=== PATIENT | female | born 1950 | race Caucasian/White ===

== ENCOUNTER 2021-06-15 07:15 | Observation (INO) | payer MEDICARE ==
[2021-06-10 12:52] LABS: BASOPHILS % (AUTO) 0.3 % (0.0-5.0); EOSINOPHILS % (AUTO) 2.9 % (0.0-8.0); HEMATOCRIT 37.4 % (36-48); MEAN CORPUSCULAR HEMOGLOBIN 29.5 pg (27.0-33.0); MEAN CORPUSCULAR HGB CONC 31.8 g/dL (32.0-36.0); MEAN CORPUSCULAR VOLUME 92.6 fL (79-99); MONOCYTES % (AUTO) 9.7 % (3.0-13.0); NEUTROPHILS % (AUTO) 58.8 % (40.0-77.0); PLATELET COUNT (AUTO) 147 K/uL (130-400); RED BLOOD CELL COUNT(AUTO) 4.04 MIL/uL (4.00-5.50); RED CELL DISTRIBUTION WIDTH 15.2 % (11.0-15.5); WHITE BLOOD COUNT (AUTO) 6.8 K/uL (4.8-10.8)
[2021-06-10 13:01] LABS: CREATININE 1.1 mg/dL (0.5-1.5)
[2021-06-10 13:04] LABS: INR 0.93 (0.85-1.15); PROTHROMBIN TIME 10.1 SEC (9.6-11.6)
[2021-06-10 13:06] LABS: PARTIAL THROMBOPLASTIN TIME 25.4 SEC (26.3-35.5)
[2021-06-14 13:17] VITALS: BP 145/82
[~2021-06-15] VITALS: Ht 170.2 cm; Wt 105.4 kg
[2021-06-15] VITALS (24 sets, daily range): BP systolic 130–166; BP diastolic 58–101
[~2021-06-15 07:15] MED LIST: ACET-2743 PO; AEC81 PO; AMIO200T68 PO; CALC-1009 PO; CELE100 PO; FAMO20TA8 PO; HYDR-4153 PO; HYDR25TA PO; LEVO75CA5 PO; MELO-106 PO; NIFE-40 PO; OMEG-148 PO; POTA-79 PO; PREG100C PO; PSYL660P17 PO; TEMA30CA PO; TRAM50TA4 PO; VENL150T3 PO; [UNRECOGNIZED DRUG - CODE] PO
[2021-06-15] MEDS ORDERED: LACTATED RINGERS 1000ML 1,000 ML IV SCH (08:00)
[2021-06-15] MEDS: CEFAZOLIN SODIUM 1 GM VIAL IVP ONE ×2 (09:56→14:02)
[2021-06-15] MEDS ORDERED: LIDOCAINE PF 100MG/5ML (2%) SYRINGE 5ML ONE (12:42)
[2021-06-15] MEDS ORDERED: PROPOFOL 10 MG/ML 20ML VIAL IV ONE (12:42)
[2021-06-15] MEDS ORDERED: FENTANYL CITRATE PF 50 MCG/1 ML 2ML VIAL ONE ×3 (12:43→16:54)
[2021-06-15] MEDS ORDERED: ROCURONIUM 10MG/1ML SYR 10 MG/ML ML ONE (12:43)
[2021-06-15] MEDS ORDERED: MIDAZOLAM HCL 1 MG/ML 2ML VIAL ONE (12:43)
[2021-06-15] MEDS ORDERED: ONDANSETRON 4MG INJ ONE (12:45)
[2021-06-15] MEDS ORDERED: ROPIVACAINE 0.5% 5MG/ML 30ML IJ ONE (12:50)
[2021-06-15] MEDS ORDERED: DEXAMETHASONE SOD PHOSPHATE 10MG/ML 1ML VIAL ONE (12:51)
[2021-06-15] MEDS ORDERED: TRANEXAMIC ACID 1000MG/10ML ONE ×2 (13:08→14:17)
[2021-06-15] MEDS ORDERED: EPHEDRINE SULFATE 50 MG/ML AMPULE ONE (13:58)
[2021-06-15] MEDS ORDERED: LIDOCAINE HCL-MPF 1% 2ML VIAL IV PRN (14:00)
[2021-06-15] MEDS: ACETAMINOPHEN 500 MG TABLET PO SCH ×2 (14:00→21:29)
[2021-06-15] MEDS ORDERED: KCL 20 MEQ ERTAB PO PRN (14:00)
[2021-06-15] MEDS ORDERED: ONDANSETRON 4MG INJ IVP PRN (14:00)
[2021-06-15] MEDS: 0.9%NACL 1000ML 1,000 ML IV SCH (14:00)
[2021-06-15] MEDS ORDERED: POTASSIUM CHLORIDE 10% ELIXIR 20 MEQ/15 ML UDCUP PO PRN (14:00)
[2021-06-15] MEDS ORDERED: MORPHINE 4 MG SYG IVP PRN (14:00)
[2021-06-15] MEDS ORDERED: HYDROCODONE/ACETAMINOPHEN 5/325 MG TAB PO PRN (14:00)
[2021-06-15] MEDS ORDERED: POTASSIUM CHLORIDE 20MEQ/100ML 100 ML IV PRN (14:00)
[2021-06-15] MEDS ORDERED: BUPIVACAINE/PF 0.25% 30ML VIAL IJ ONE (15:11)
[2021-06-15] MEDS ORDERED: TRANEXAMIC ACID 1000MG/10ML IV ONE (15:22)
[2021-06-15] MEDS ORDERED: GLYCOPYRROLATE 1 MG/5 ML SYRINGE ONE ×2 (15:30→16:55)
[2021-06-15] MEDS ORDERED: NEOSTIGMINE 5MG/5ML SYR IV ONE (15:31)
[2021-06-15] MEDS ORDERED: KETOROLAC 30MG VIAL (30MG/ML) ONE (16:17)
[2021-06-15] MEDS ORDERED: MEPERIDINE-PF 25 MG/ML SYG ONE ×2 (16:18→16:25)
[2021-06-15] MEDS: HYDROCODONE/ACETAMINOPHEN 10/325 MG TAB PO PRN (18:40)
[2021-06-15] MEDS: TRAMADOL HCL 50 MG TABLET PO SCH ×2 (18:59→23:38)
[2021-06-15] MEDS: FAMOTIDINE 20MG TAB PO SCH (21:03)
[2021-06-15] MEDS: ASPIRIN 81 MG EC TAB PO SCH (21:03)
[2021-06-15] MEDS: PREGABALIN 100 MG CAPSULE PO SCH (21:04)
[2021-06-15] MEDS: HYDRALAZINE 25MG TABLET PO SCH (21:04)
[2021-06-15] MEDS: KCL 20 MEQ ERTAB PO SCH (21:04)
[2021-06-15] MEDS: MEPERIDINE-PF 25 MG/ML SYG IM PRN (21:20)
[2021-06-15] MEDS: CEFAZOLIN SODIUM 1 GM VIAL IVP SCH (21:20)
[2021-06-15] MEDS: CALDOLOR 800MG+NS 250ML 250 ML IV SCH (21:29)
[2021-06-15] MEDS: TEMAZEPAM 30 MG CAP PO SCH (23:38)
[2021-06-16] MEDS: BUTALB/ACETAMINOPHEN/CAFFEINE 1 EACH TABLET PO PRN ×2 (01:36→13:02)
[2021-06-16] MEDS: CALDOLOR 800MG+NS 250ML 250 ML IV SCH (02:13)
[2021-06-16] MEDS: CEFAZOLIN SODIUM 1 GM VIAL IVP SCH (02:13)
[2021-06-16] MEDS: MEPERIDINE-PF 25 MG/ML SYG IM PRN ×2 (04:32→14:12)
[2021-06-16 04:33] LABS: MEAN CORPUSCULAR HEMOGLOBIN 30.4 pg (27.0-33.0); MEAN CORPUSCULAR HGB CONC 33.7 g/dL (32.0-36.0); MEAN CORPUSCULAR VOLUME 90.4 fL (79-99); RED BLOOD CELL COUNT(AUTO) 3.32 MIL/uL (4.00-5.50); RED CELL DISTRIBUTION WIDTH 15.2 % (11.0-15.5); WHITE BLOOD COUNT (AUTO) 9.6 K/uL (4.8-10.8)
[2021-06-16 04:38] VITALS: BP 115/58
[2021-06-16 04:51] LABS: CREATININE 1.2 mg/dL (0.5-1.5)
[2021-06-16] MEDS: TRAMADOL HCL 50 MG TABLET PO SCH ×3 (05:56→18:54)
[2021-06-16] MEDS: ACETAMINOPHEN 500 MG TABLET PO SCH ×3 (05:56→20:52)
[2021-06-16 08:00] VITALS: BP 128/62
[2021-06-16] MEDS: KCL 20 MEQ ERTAB PO SCH ×2 (08:36→20:51)
[2021-06-16] MEDS: HYDRALAZINE 25MG TABLET PO SCH ×2 (08:36→20:50)
[2021-06-16] MEDS: ASPIRIN 81 MG EC TAB PO SCH ×2 (08:36→20:50)
[2021-06-16] MEDS: LEVOTHYROXINE 75 MCG TABLET PO SCH (08:37)
[2021-06-16] MEDS: NIFEDIPINE ER 30 MG TAB PO SCH (08:37)
[2021-06-16] MEDS: PREGABALIN 100 MG CAPSULE PO SCH ×2 (08:37→20:50)
[2021-06-16] MEDS: FAMOTIDINE 20MG TAB PO SCH ×2 (08:37→20:50)
[2021-06-16] MEDS: AMIODARONE 200 MG TABLET PO SCH (08:37)
[2021-06-16] MEDS: HYDROCODONE/ACETAMINOPHEN 10/325 MG TAB PO PRN ×2 (08:38→20:50)
[2021-06-16] MEDS: POLYETHYLENE GLYCOL 3350 17 GM POWD.PACK PO SCH (08:41)
[2021-06-16] MEDS: HYDROCHLOROTHIAZIDE 25 MG TABLET PO SCH (08:41)
[2021-06-16] MEDS: PSYLLIUM SEED 1 EACH PACKET PO SCH (08:41)
[2021-06-16] MEDS: 0.9%NACL 1000ML 1,000 ML IV SCH ×2 (10:00→11:10)
[2021-06-16 11:17] VITALS: BP 136/67
[2021-06-16 16:00] VITALS: BP 142/69
[2021-06-16] MEDS: TEMAZEPAM 30 MG CAP PO SCH (20:50)
[2021-06-16 21:22] VITALS: BP 132/63
[2021-06-16] MEDS ORDERED: CYCLOBENZAPRINE HCL 10 MG TABLET ONE (22:11)
[2021-06-16] MEDS ORDERED: CYCLOBENZAPRINE HCL 10 MG TABLET PO PRN (22:30)
[2021-06-17 04:05] VITALS: BP 146/67
[2021-06-17] MEDS: ACETAMINOPHEN 500 MG TABLET PO SCH ×3 (06:06→20:34)
[2021-06-17] MEDS: LEVOTHYROXINE 75 MCG TABLET PO SCH (06:06)
[2021-06-17] MEDS: TRAMADOL HCL 50 MG TABLET PO SCH ×5 (06:06→23:35)
[2021-06-17 08:00] VITALS: BP 128/58
[2021-06-17] MEDS: PREGABALIN 100 MG CAPSULE PO SCH ×2 (08:48→20:32)
[2021-06-17] MEDS: PSYLLIUM SEED 1 EACH PACKET PO SCH (08:48)
[2021-06-17] MEDS: AMIODARONE 200 MG TABLET PO SCH (08:48)
[2021-06-17] MEDS: ASPIRIN 81 MG EC TAB PO SCH ×2 (08:48→20:32)
[2021-06-17] MEDS: FAMOTIDINE 20MG TAB PO SCH ×2 (08:48→20:32)
[2021-06-17] MEDS: NIFEDIPINE ER 30 MG TAB PO SCH (08:48)
[2021-06-17] MEDS: POLYETHYLENE GLYCOL 3350 17 GM POWD.PACK PO SCH (08:48)
[2021-06-17] MEDS: HYDROCHLOROTHIAZIDE 25 MG TABLET PO SCH (08:48)
[2021-06-17] MEDS: HYDRALAZINE 25MG TABLET PO SCH ×2 (08:48→20:32)
[2021-06-17] MEDS: KCL 20 MEQ ERTAB PO SCH ×2 (08:49→20:33)
[2021-06-17] MEDS: HYDROCODONE/ACETAMINOPHEN 10/325 MG TAB PO PRN (10:58)
[2021-06-17 11:59] VITALS: BP 115/58
[2021-06-17] MEDS ORDERED: CELESTONE SOLUSPAN 6 MG/ML 5ML VIAL IM SCH (13:00)
[2021-06-17] MEDS: TEMAZEPAM 30 MG CAP PO SCH (23:35)
[2021-06-18 00:10] VITALS: BP 145/61
[2021-06-18] MEDS: LEVOTHYROXINE 75 MCG TABLET PO SCH (05:55)
[2021-06-18] MEDS: ACETAMINOPHEN 500 MG TABLET PO SCH (05:56)
[2021-06-18] MEDS: TRAMADOL HCL 50 MG TABLET PO SCH (05:56)
[2021-06-18 08:50] VITALS: BP 132/68
[2021-06-18] MEDS: HYDRALAZINE 25MG TABLET PO SCH (08:58)
[2021-06-18] MEDS: POLYETHYLENE GLYCOL 3350 17 GM POWD.PACK PO SCH (08:58)
[2021-06-18] MEDS: ASPIRIN 81 MG EC TAB PO SCH (08:58)
[2021-06-18] MEDS: HYDROCHLOROTHIAZIDE 25 MG TABLET PO SCH (08:58)
[2021-06-18] MEDS: PSYLLIUM SEED 1 EACH PACKET PO SCH (08:58)
[2021-06-18] MEDS: FAMOTIDINE 20MG TAB PO SCH (08:58)
[2021-06-18] MEDS: NIFEDIPINE ER 30 MG TAB PO SCH (08:58)
[2021-06-18] MEDS: AMIODARONE 200 MG TABLET PO SCH (08:58)
[2021-06-18] MEDS: PREGABALIN 100 MG CAPSULE PO SCH (08:58)
[2021-06-18] MEDS: KCL 20 MEQ ERTAB PO SCH (08:59)
[2021-06-18] MEDS ORDERED: BISACODYL 10 MG SUPP.RECT RC PRN (14:00)
== END 2021-06-18 10:05 ==
LOC: DAH 07:15 → DAHIP 07:16 → 4BH 18:24
PROVIDERS: ADMIT Orthopaedic Surgery; ATTEND Orthopaedic Surgery
DX: M17.12 Unilateral primary osteoarthritis, left knee (principal); Z20.822 Contact with and (suspected) exposure to COVID-19; Z79.82 Long term (current) use of aspirin; Z79.899 Other long term (current) drug therapy
CPT/HCPCS: 27447; 36415 ×2; 64447; 76942; 80048 ×2; 85025; 85027; 85610; 85730; 87635; 87641; 96365; 96366 ×3; 96372 ×2; 96375; 96376; 97039 ×7; 97116 ×3; 97161; 97530 ×3; A4215; A4221; A4222; A4223; A4649 ×4; A4663; A6260; C1776; C9803; G0378 ×62; J0690 ×3; J0702; J1100; J1741; J2001; J2175 ×5; J2250; J2405 ×2; J2704; J2710; J2795; J3010 ×3; J3490 ×7; J7030; J7120; J1885